=== PATIENT | male | born 1930 | race Caucasian/White ===

== ENCOUNTER → 2021-05-18 | Outpatient (CLI) | payer MEDICARE ==
--- NOTE | 2021-05-23 02:30 | ECWPNPC ---
PATIENT NAME: PAPITO JOHNSTON : 1930 GENDER: MALE VISIT DATE: 05/18/2021 DISCHARGE DATE: 05/18/21 1400 VISIT LOCKED DATE TIME: PHYSICIAN: ZELALEM BHATIA RESOURCE: ZELALEM BHATIA REASON FOR APPOINTMENT 1. SPINAL STENOSIS HISTORY OF PRESENT ILLNESS DEPRESSION SCREENING: PHQ-2 (2015 EDITION) LITTLE INTEREST OR PLEASURE IN DOING THINGS?NOT AT ALL FEELING DOWN, DEPRESSED, OR HOPELESS?NOT AT ALL TOTAL SCORE0 GENERAL: PLEASANT 89-YEAR-OLD FEMALE REFERRED BY PRIMARY CARE DOCTOR LOCALLY FOR CHRONIC LOW BACK PAIN. PATIENT HAS A HISTORY OF RHEUMATOID ARTHRITIS AND POLYMYALGIA. PATIENT HAS HAD 2 FALL INJURIES IN THE PAST 6 MONTHS. FIRST WAS IN OCTOBER. PATIENT HAS HAD INCREASE IN LOW BACK PAIN WITH LEFT LEG RADICULAR SYMPTOMS FOR A LONG PERIOD OF TIME BUT REPORTS INCREASE IN THESE AREAS OF PAIN SINCE FALLING. SHE WAS HOSPITALIZED IN [place] AFTER A SYNCOPAL EPISODE IN JANUARY 2021. SHE ATTENDED REHAB THERAPY AND WAS DOING QUITE WELL. CHIEF AREA OF PAIN IS LEFT LOW BACK . PAIN IS AGGRAVATED BY WALKING AND RESOLVED WITH SITTING. HAS CHRONIC URINARY INCONTINENCE. STARTED PHYSICAL THERAPY ORDERED BY PRIMARY CARE LAST WEEK. REPORTS IMPROVEMENT WITH NEW RHEUMATOID MEDICATION THAT THEY HAVE PUT HER ON, LEFLUNOMIDE. - - -. FALL RISK SCREENING: SCREENING ONE FALL THIS YEAR HAD A SYNCOPE IN JANUARY PATIENT STATED THAT SHE DID GO TO THE ER. PAIN SCREENING: PATIENT HAS A COMPLAINT OF ACUTE OR CHRONIC PAIN :YES LOCATION OF PAIN:UPPER BACK, MID BACK, LOW BACK INTENSITY OF PAIN (SCALE OF 1 TO 10):5 WAS AT A 8 THIS MORNING WHAT DOES YOUR PAIN FEEL LIKE:CONTINOUS, SHARP DURATION:CONTINOUS, CONSTANT, ALL DAY, MAINLY DURING THE DAY PAIN IS INCREASED BY:ACTIVITIES PAIN IS DECREASED BY:SITTING, OTHERS RESTING NURSING NOTE: - - -. PAIN CENTER INTAKE QUESTIONS: DO YOU HAVE A HISTORY OF MRSA? :NO DO YOU TAKE A BLOOD THINNERS? :NO DO YOU HAVE ANY BLEEDING DISORDERS? :NO ANY NEW NUMBNESS OR WEAKNESS IN YOUR LEGS OR ARMS? :NO ANY PACEMAKER,DEFIBRILLATOR, OR DORSAL COLUMN STIMULATOR? :NO DO YOU HAVE ANY RASHES OR OPEN SORES? :NO ARE YOU ALLERGIC TO IV DYE? :NO ARE YOU DIABETIC? :NO ANY NEW PROBLEMS WITH YOUR MEDICATIONS? :NO HAVE YOU RECEIVED A VACCINE IN THE PAST 30 DAYS? :NO DO YOU PLAN TO RECEIVE A VACCINE IN THE NEXT 21 DAYS? :NO DO YOU NEED ANY PRESCRIPTION? :NO DO YOU TAKE ANY IMMUNOSUPPRESSIVE MEDICATIONS? :NO IS THERE A CHANCE YOU COULD BE ? :NO ARE YOU BREAST FEEDING? :NO CURRENT MEDICATIONS TAKING AMLODIPINE BESYLATE 2.5 MG TABLET 1 TABLET ORALLY ONCE A DAY TAKING ASPERCREME LIDOCAINE 4 % LIQUID DIRECTED EXTERNALLY TAKING ATENOLOL 100 MG TABLET 1 TABLET ORALLY ONCE A DAY TAKING ATORVASTATIN CALCIUM 20 MG TABLET 1 TABLET ORALLY ONCE A DAY TAKING BENEFIBER - POWDER DIRECTED ORALLY TAKING CITRACAL MAXIMUM 315-250 MG-UNIT TABLET 1 TABLET ORALLY TWICE A DAY TAKING FERROUS SULFATE 324 MG TABLET DIRECTED ORALLY TAKING HYDROCHLOROTHIAZIDE 12.5 MG CAPSULE 1 CAPSULE IN THE MORNING ORALLY ONCE A DAY TAKING LISINOPRIL 20 MG TABLET 1 TABLET ORALLY ONCE A DAY TAKING OMEPRAZOLE 20 MG CAPSULE DELAYED RELEASE 1 CAPSULE 30 MINUTES BEFORE MORNING MEAL ORALLY ONCE A DAY TAKING MOBIC 7.5 MG TABLET 1 TABLET ORALLY ONCE A DAY TAKING TAMSULOSIN HCL 0.4 MG CAPSULE 1 CAPSULE ORALLY ONCE A DAY TAKING LEFLUNOMIDE 20 MG TABLET 1 TABLET ORALLY ONCE A DAY TAKING SALINE MIST SPRAY 0.65 % SOLUTION 2 SPRAYS IN EACH NOSTRIL NEEDED NASALLY EVERY 2 HRS TAKING FLUTICASONE PROPIONATE 50 MCG/ACT SUSPENSION 1 SPRAY IN EACH NOSTRIL NASALLY ONCE A DAY TAKING TYLENOL 325 MG TABLET 1 TABLET NEEDED ORALLY 650MG EVERY 4 HRS NEEDED TAKING CULTURELLE - CAPSULE DIRECTED ORALLY NOT-TAKING ALENDRONATE SODIUM 70 MG TABLET 1 TABLET 30 MINUTES BEFORE THE FIRST FOOD, BEVERAGE OR MEDICINE OF THE DAY WITH PLAIN WATER ORALLY NOT-TAKING CRANBERRY 500 MG CAPSULE DIRECTED ORALLY NOT-TAKING PROBIOTIC - TABLET DELAYED RELEASE DIRECTED ORALLY NOT-TAKING LUTEIN 6 MG CAPSULE 1 CAPSULE WITH A MEAL ORALLY ONCE A DAY, NOTES: NOT SURE OF DOSE NOT-TAKING CULTURELLE - CAPSULE DIRECTED ORALLY NOT-TAKING PREDNISONE 1 TAB ORAL 15 MG NOT-TAKING TAMSULOSIN HCL 0.4 MG CAPSULE 1 CAPSULE ORALLY ONCE A DAY MEDICATION LIST REVIEWED AND RECONCILED WITH THE PATIENT PAST MEDICAL HISTORY CYSTITIS EDEMA CONSTIPATION ANEMIA HYPERTENSION CHRONIC KIDNEY DISEASE STAGE 1-4- NOT SURE PERIPHEAL VENOUS INSUFFICIENCY RHEUMATOID ARTHRITIS MELONOMA VITAMIN D DEFICIENCY HYPERCHOLESTEREMIA HERPES ZOSTER NOT SURE ONE FALL THIS YEAR HAD A SYNCOPE IN JANUARY PATIENT STATED THAT SHE DID GO TO THE ER ALLERGIES MACROBID: RASH - ALLERGY METHOTREXATE: DYSPNEA - ALLERGY PLAQUENIL: RASH - ALLERGY CARDURA: NAUSEA/VOMITING - ALLERGY DYAZIDE: LOW B/P - SIDE EFFECTS COLLAGEN: ANAPHYLAXIS - ALLERGY TERFENADINE: IRRITABLE - SIDE EFFECTS SURGICAL HISTORY MELONOMA REMOVED FROM LEFT LOWER LEG- CANCER IN 40'S APPENDECTOMY AGE 19 HYSTERECTOMY IN 40'S BREAST CYCTS REMOVED EARLY S TONSILLECTOMY W/ ADENOIDECTOMY PARATHYROIDECTOMY- IN [place] 2018 MULTIPLT SQUAMOUS, DASAL CELL CANCER REMOVED FAMILY HISTORY FATHER: 80 YRS MOTHER: 86 YRS SIBLINGS: ALIVE 2 BROTHER(S) , 2 SISTER(S) . ONE SISTER CANCERONE BROTHER HEART PROBLEMS. SOCIAL HISTORY GENERAL: TOBACCO USE ARE YOU A:NONSMOKER DID A COUPLE YEAR IN EARLY LATEX QUESTIONNAIRE LATEX ALLERGY : HAVE YOU EVER DEVELOPED ANY TYPE OF REACTION AFTER HANDLING LATEX PRODUCTS SUCH RUBBER GLOVES, CONDOMS, DIAPHRAGMS, BALLOONS, SOCKS, OR UNDERWEAR?NO LATEX ALLERGY : HAVE YOU EVER DEVELOPED ANY TYPE OF REACTION DURING OR AFTER DENTAL APPOINTMENT, VAGINAL/RECTAL EXAMINATION, SURGICAL PROCEDURE, OR ANY OTHER EXPOSURE?NO LATEX RISK : HAVE YOU EVER HAD ANY DIFFICULTY BREATHING OR HIVES AFTER EATING OR HANDLING ANY FRUITS, OR VEGETABLES; SUCH KIWI, BANANAS, STONE FRUITS, OR CHESTNUTSNO LATEX RISK : DO YOU HAVE A PREVIOUS PERSONAL HISTORY OF MORE THAN NINE SURGERIES, SPINA BIFIDA, OR REPEATED CATHERIZATIONS? NO LATEX RISK : ARE YOU FREQUENTLY EXPOSED TO LATEX PRODUCTS IN YOUR OCCUPATION?NO DATE ASKED : 05/18/2021 ALCOHOL USE: YES, A GLASS OF WINE WITH DINNER NIGHTLY. ALCOHOL SCREENING DID YOU HAVE A DRINK CONTAINING ALCOHOL IN THE PAST YEAR?NO POINTS0 INTERPRETATIONNEGATIVE RECREATIONAL DRUG USE DRUG USE?NO CAFFEINE CAFFEINE USE?YES SEXUAL HX HAD SEX IN THE LAST 12 MONTHS (VAGINAL, ORAL, OR ANAL)?NO HAVE YOU EVER HAD AN STD?NO LANGUAGE LANGUAGES SPOKEN:EQUATORIAL GUINEAN LEARNING BARRIERS / SPECIAL NEEDS CHANGE FROM LAST VISIT?NO BARRIERS TO LEARNING?NO HEARING IMPAIRED?YES : DOES NOT HEAR WELL LIKE SHE USE TO VISION IMPAIRED?YES :CORRECTIVE LENSES COGNITIVELY IMPAIRED?NO READINESS TO LEARN?YES LEARNING PREFERENCES?NO LEARNING CAPABILITIES PRESENT?NO EMOTIONAL BARRIERS?NO SPECIAL DEVICES?YES :WALKER NEEDED TENDERIZER TENDER NEEDED?NO OCCUPATION: RETIRED. DIET: REGULAR. EXERCISE: NO REGULAR EXERCISE. MARITAL STATUS: SINGLE, NEVER . HOSPITALIZATION/MAJOR DIAGNOSTIC PROCEDURE SEE ABOVE ONE FALL THIS YEAR HAD A SYNCOPE 01/2021 REVIEW OF SYSTEMS CONSTITUTIONAL: ANY RECENT FEVER NO . CHILLS NO . WEIGHT CHANGE OF UNKNOWN REASONS NO . GASTROENTEROLOGY: NEW UNEXPLAINABLE CHANGES IN BOWEL CONTROL NO . CONSTIPATION NO . GENITOURINARY: ANY NEW CHANGE IN BLADDER CONTROL? NO . NEUROLOGY: NEW ONSET DIZZINESS OR NEUROLOGICAL CHANGES NOT MENTIONED NO . NEW NUMBNESS OR PAIN PATTERNS NOT MENTIONED AND PERTINENT TO TODAY'S VISIT NO . CARDIOLOGY: NEW CHEST PRESSURE NO . PATIENT DENIES NO . RESPIRATORY: UNEXPLAINABLE COUGH NO . NEW SHORTNESS OF BREATH NO . VITAL SIGNS WT 148.4 LBS, HT 64 IN, BMI 25.47 INDEX, BP 178/73 MM HG, HR 74 /MIN, RR 16 /MIN, TEMP 97.1 F, OXYGEN SAT % 97%, SAFE IN ENV? (Y/N) YES, NA INITIALS SC 13:07T.KATT SEPULVEDA. EXAMINATION GENERAL EXAMINATION: GENERALNO ACUTE DISTRESS, WELL NOURISHED AND HYDRATED. PSYCHAPPROPRIATE MOOD AND AFFECT . FACE:UNREMARKABLE. NECK:NO LYMPHADENOPATHY, SUPPLE. LUNGS:CLEAR TO AUSCULTATION BILATERALLY, NO WHEEZES, RHONCHI, RALES. HEART:NO MURMURS, REGULAR RATE AND RHYTHM. MUSCULOSKELETAL:MUSCLE STRENGTH TESTING SLIGHTLY WEAK BILATERALLY LOWER EXTREMITIES. LUMBAR:MILD TENDERNESS NOTED OVER LS AXIS AND LUMBAR PARASPINALS.. NEUROLOGIC EXAM:NORMAL SENSATION TO LIGHT TOUCH UPPER AND LOWER EXTREMITIES.. ASSESSMENTS GENERALIZED JOINT PAIN - M25.50 (PRIMARY) SPINAL STENOSIS, LUMBOSACRAL REGION - M48.07 TREATMENT GENERALIZED JOINT PAIN START CYMBALTA CAPSULE DELAYED RELEASE PARTICLES, 30 MG, 1 CAPSULE, ORALLY, ONCE A DAY, 30 DAY(S), 30, REFILLS 2 NOTES: TODAY I RECOMMEND STARTING CYMBALTA 30 MG DAILY FOR GENERALIZED JOINT PAIN AND LUMBAR RADICULAR SYMPTOMS. ADVISED TO CONTINUE PHYSICAL THERAPY. FOLLOW-UP IS SCHEDULED IN 6 MONTHS. MAY CONSIDER INJECTIONS IF NO IMPROVEMENT IN PAIN I.E. LUMBAR FACET BLOCK. PROCEDURE CODES [id number] ESTABILISHED PATIENT [facility] FACILITY CHARGE DISPOSITION & COMMUNICATION FOLLOW UP 6-8WKS (REASON: FOLLOW-UP AFTER INITIAL CONSULT AND STARTING CYMBALTA 30 MG DAILY) ELECTRONICALLY SIGNED BY TRICIA GREGG ON 05/22/2021 AT 10:04 AM EDT DISCLAIMER : THIS IS A VISIT SUMMARY EXTRACTED FROM THE [employer] CHART. IT IS NOT A COPY OF THE [employer] PROGRESS NOTE. POLO
== END ==
LOC: M PAIN 13:00
PROVIDERS: ATTEND Nurse Practitioner Family
DX: M48.07 Spinal stenosis, lumbosacral region (principal); G89.29 Other chronic pain; M25.50 Pain in unspecified joint; D50.9 Iron deficiency anemia, unspecified; Z88.1 Allergy status to other antibiotic agents; Z88.8 Allergy status to other drugs, medicaments and biological substances; Z79.899 Other long term (current) drug therapy